=== PATIENT | female | born 1980 | race Hispanic/Latino ===

== ENCOUNTER → 2016-12-05 | Outpatient (CLI) | payer OTHER ==
--- NOTE | 2016-12-07 06:42 | SLEEPCENT ---
DATE OF PROCEDURE: 12/05/2016 ORDERED BY: Sarah Campbell Nocturnal polysomnography was performed due to ongoing concerns for the obstructive sleep apnea syndrome. The patient has had home testing which revealed a mild respiratory disturbance. 6 hours and 55 minutes of data were reviewed. There were only 171 minutes of sleep identified. Sleep latency was prolonged at 25 minutes Rapid eye movement (REM) latency more so prolonged at 141 minutes. Sleep architecture showed some fragmentation. Overall efficiency was low as the patient awoke shortly before 2 a.m. and was unable to return to sleep. Sleep efficiency was 43.4%. The patient's EKG showed a sinus rhythm with an average heart rate of 84 beats per minute. Heart rate ranged 80-90 beats per minute. EEG showed normal wave forms for awake and sleep. There were 16 respiratory events identified of 10 seconds in duration or greater for an apnea-hypopnea index of 5.6. The events were not exclusive to sleep stage nor body posture. Arousals from respiratory events when arousals from snoring were included occurred 9.5 times per hour. Oxygen desaturations were seen into the 80s and no significant limb activity was seen. Remaining measures of sleep physiology were normal. IMPRESSION: Obstructive sleep apnea syndrome (G47.33). Apnea-hypopnea index 5.6. RECOMMENDATION: Given the elevated respiratory arousal index, patient should be referred back to the sleep disorder center for pressure therapy. In the interim, alcohol and sedative avoidance should be practiced and caution exercised during operation of motor vehicles.
== END ==
LOC: M SLEEP 19:54
PROVIDERS: ATTEND Physician Assistant Medical
DX: G47.33 Obstructive sleep apnea (adult) (pediatric) (principal)

== ENCOUNTER → 2017-01-03 | Outpatient (CLI) | payer OTHER ==
[2017-01-03 13:01] LABS: BASO % 0.5 % (0.0-1.0); EOS # 0.3 K/mm3 (0.0-0.50); EOS % 2.8 % (0.0-3.0); LARGE UNSTAINED CELL # 0.2 K/mm3 (0.0-0.4); LARGE UNSTAINED CELL % 1.4 % (0.0-4.0); LYMPH # 3.3 K/mm3 (1.5-4.5); LYMPH % 30.5 % (24.0-44.0); MEAN CORPUSCULAR HGB CONC 33.4 g/dl (32.0-36.5); MONO # 0.5 K/mm3 (0.0-0.8); NEUTROPHILS # 6.2 K/mm3 (1.8-7.7); NEUTROPHILS % 59.8 % (36.0-66.0); PLATELET COUNT, AUTOMATED 316 k/mm3 (150-450); RED CELL DISTRIBUTION WIDTH 13.5 % (11.5-14.5); WHITE BLOOD COUNT 10.3 K/mm3 (4.0-10.0)
[2017-01-03 13:26] LABS: ALBUMIN 3.5 GM/DL (3.2-5.2); ALBUMIN/GLOBULIN RATIO 1.09 (1.00-1.93); ALKALINE PHOSPHATASE 89 U/L (45-117); ALT/SGPT 18 U/L (12-78); AMYLASE 46 U/L (25-115); ANION GAP 9 MEQ/L (8-16); AST/SGOT 14 U/L (15-37); BILIRUBIN,TOTAL 0.3 MG/DL (0.2-1.0); BLOOD UREA NITROGEN 17 MG/DL (7-18); CALCIUM LEVEL 8.8 MG/DL (8.5-10.1); CARBON DIOXIDE LEVEL 27 MEQ/L (21-32); CHLORIDE LEVEL 103 MEQ/L (98-107); CREATININE FOR GFR 0.62 MG/DL (0.55-1.02); GLOMERULAR FILTRATION RATE > 60.0 (>60); GLUCOSE, FASTING 90 MG/DL (70-105); POTASSIUM SERUM 4.5 MEQ/L (3.5-5.1); SODIUM LEVEL 139 MEQ/L (136-145); TOTAL PROTEIN 6.7 GM/DL (6.4-8.2)
== END ==
LOC: M LAB 11:53
PROVIDERS: ATTEND Physician Assistant Medical
DX: R10.33 Periumbilical pain (principal)

== ENCOUNTER → 2017-01-09 | Outpatient (CLI) | payer OTHER | LOC: M LAB 16:00 | PROVIDERS: ATTEND Internal Medicine Gastroenterology | DX: R19.7 Diarrhea, unspecified (principal) ==

== ENCOUNTER → 2017-01-30 | Outpatient (CLI) | payer OTHER ==
--- NOTE | 2017-01-31 16:48 | SLEEPCENT ---
DATE OF PROCEDURE: 01/30/2017 REQUESTING PROVIDER: Sarah Campbell NP Nocturnal polysomnography was performed for titration of pressure therapy in this patient with obstructive sleep apnea syndrome, apnea hypopnea index of 5.6. For testing, the patient was fit with a Resmed Quattro full face mask of small size, 4 cm of water pressure were applied to the circuit and the lights were extinguished. 8 hours and 33 minutes of data were reviewed. There were 345 minutes of sleep identified. Sleep latency was prolonged at 51 minutes. Rapid eye movement (REM) latency was normal at 94 minutes. Sleep architecture was good with three REM periods. Overall sleep efficiency was 68.9%. The patient's electrocardiogram (EKG) showed a sinus rhythm with an average heart rate of 82 beats per minute. EEG showed normal waveforms for awake and sleep. Respiratory events were fully palliated with CPAP at a pressure of +7. CPAP tolerance was good. IMPRESSION: Obstructive sleep apnea syndrome (G47.33). RECOMMENDATIONS: Nightly use of pressure therapy at 7 cm of water.
== END ==
LOC: M SLEEP 20:04
PROVIDERS: ATTEND Nurse Practitioner Adult Health
DX: G47.33 Obstructive sleep apnea (adult) (pediatric) (principal)

== ENCOUNTER → 2017-04-11 | Day surgery (SDC) | payer OTHER ==
[~2017-04-11] VITALS: Ht 165.1 cm; Wt 167.8 kg
[~2017-04-11] MED LIST: BENT20TA PO; CLON0.5T PO; GING550C PO; LEXA1TAB PO; LIDOCAINE 2% INJ 100 MG/5 ML SDV (FOR ANES.) As Ordered ONE; LR 1,000 ML IV SCH; ONDANSETRON 4MG/2ML VIAL (J2405) IV PRN; PROPOFOL 200 MG/20 ML VIAL As Ordered ONE; RANI150T PO
--- NOTE | 2017-04-11 07:50 | ROOR ---
Patient Name: Marley Montero Procedure Date: 04/11/2017 7:18 AM Date of : 1980 Age: 37 Gender: Female Note Status: Finalized Procedure: Colonoscopy Indications: Irritable bowel syndrome with diarrhea Providers: Artemio RAINEY MD Referring MD: RODNEY WRIGHT Requesting Provider: Medicines: Monitored Anesthesia Care Complications: No immediate complications. Estimated blood loss: None. Procedure: Pre-Anesthesia Assessment: - The heart rate, respiratory rate, oxygen saturations, blood pressure, adequacy of pulmonary ventilation, and response to care were monitored throughout the procedure. The Colonoscope was introduced through the anus and advanced to 6 cm into the ileum. The colonoscopy was performed without difficulty. The patient tolerated the procedure well. The quality of the bowel preparation was good. Findings: The perianal and digital rectal examinations were normal. The terminal ileum appeared normal. Small Internal Hemorrhoids. The entire examined colon appeared normal. Impression: - The examined portion of the ileum was normal. - Small Internal Hemorrhoids. - The entire colon is normal. - No specimens collected. - (Irritable Bowel Syndrome/IBS suspected.) Recommendation: - Continue present medications. - Lactose free diet. Artemio Rainey MD Artemio RAINEY MD 04/11/2017 7:50:10 AM This report has been signed electronically. Number of Addenda: 0 Note Initiated On: 04/11/2017 7:18 AM Estimated Blood Loss: Estimated blood loss: none.
[2017-04-11 08:50] VITALS: BP 124/83
== END | disposition home or self-care (01) ==
LOC: M SDC 06:26
PROVIDERS: ATTEND Internal Medicine Gastroenterology
DX: K58.0 Irritable bowel syndrome with diarrhea (principal); E78.5 Hyperlipidemia, unspecified; K21.9 Gastro-esophageal reflux disease without esophagitis; F41.9 Anxiety disorder, unspecified; F32.9 Major depressive disorder, single episode, unspecified; G47.30 Sleep apnea, unspecified; Z79.899 Other long term (current) drug therapy

== ENCOUNTER → 2017-05-01 | Outpatient (CLI) | payer OTHER ==
[~2017-05-01] MED LIST changes: -LIDOCAINE 2% INJ 100 MG/5 ML SDV (FOR ANES.) As Ordered ONE; -LR 1,000 ML IV SCH; -ONDANSETRON 4MG/2ML VIAL (J2405) IV PRN; -PROPOFOL 200 MG/20 ML VIAL As Ordered ONE
[2017-05-01 16:04] LABS: ANION GAP 6 MEQ/L (8-16); BLOOD UREA NITROGEN 15 MG/DL (7-18); CALCIUM LEVEL 9.3 MG/DL (8.5-10.1); CARBON DIOXIDE LEVEL 29 MEQ/L (21-32); CHLORIDE LEVEL 104 MEQ/L (98-107); CHOLESTEROL LEVEL 216 MG/DL (<200); CREATININE FOR GFR 0.56 MG/DL (0.55-1.02); GLOMERULAR FILTRATION RATE > 60.0 (>60); GLUCOSE, FASTING 90 MG/DL (70-105); POTASSIUM SERUM 4.4 MEQ/L (3.5-5.1); SODIUM LEVEL 139 MEQ/L (136-145); TRIGLYCERIDES LEVEL 85 MG/DL (<150)
== END ==
LOC: M LAB 14:41
PROVIDERS: ATTEND Physician Assistant Medical
DX: E78.5 Hyperlipidemia, unspecified (principal)